=== PATIENT | female | born 1975 | race Caucasian/White ===

== ENCOUNTER 2017-03-12 13:09 | Day surgery (SDC) | payer BC ==
[2017-03-12 13:40] LABS: ABSOLUTE BASOPHILS # (AUTO) 0.1 10^3/uL (0.0-0.2); ABSOLUTE EOSINOPHILS # (AUTO) 0.1 10^3/uL (0.0-0.6); ABSOLUTE LYMPHOCYTES (AUTO) 2.4 10^3/uL (0.5-4.7); ABSOLUTE MONOCYTES (AUTO) 0.6 10^3/uL (0.1-1.4); ABSOLUTE NEUT (AUTO) 9.1 10^3/uL (1.7-8.2); BASOPHILS % (AUTO) 1.1 % (0-2); EOSINOPHILS % (AUTO) 0.8 % (0-6); HEMATOCRIT 39.4 % (36.0-47.0); HEMOGLOBIN 12.8 g/dL (12.0-15.5); LYMPHOCYTES % (AUTO) 19.2 % (13-45); MEAN CORPUSCULAR HEMOGLOBIN 24.8 pg (27.0-33.4); MEAN CORPUSCULAR HGB CONC 32.4 g/dL (32.0-36.0); MEAN CORPUSCULAR VOLUME 77 fl (80-97); RED BLOOD COUNT 5.14 10^6/uL (3.72-5.28); RED CELL DISTRIBUTION WIDTH 14.9 % (11.5-14.0); SEGMENTED NEUTROPHILS % (AUTO) 73.9 % (42-78); WHITE BLOOD COUNT 12.3 10^3/uL (4.0-10.5)
[2017-03-12 13:56] LABS: ANION GAP 16 (5-19); BLOOD UREA NITROGEN 14 mg/dL (7-20); CALCIUM 9.6 mg/dL (8.4-10.2); CARBON DIOXIDE 19 mmol/L (22-30); CHLORIDE 107 mmol/L (98-107); CREATININE RESULT 0.71 mg/dL (0.52-1.25); GLUCOSE 224 mg/dL (75-110); POTASSIUM 4.2 mmol/L (3.6-5.0); SODIUM 141.8 mmol/L (137-145)
--- NOTE | 2017-03-12 13:58 | RADIOLOGY REPORT (SQ) ---
EXAM DESCRIPTION: CHEST SINGLE VIEW COMPLETED DATE/TIME: 03/12/2017 1:35 pm REASON FOR STUDY: PREOP COMPARISON: None. EXAM PARAMETERS: NUMBER OF VIEWS: One view. TECHNIQUE: Single frontal radiographic view of the chest acquired. RADIATION DOSE: NA LIMITATIONS: None. FINDINGS: LUNGS AND PLEURA: No opacities, masses or pneumothorax. No pleural effusion. MEDIASTINUM AND HILAR STRUCTURES: Andreina mildly prominent with prominent central pulmonary artery, ques tion pulmonary hypertension. Fullness right paratracheal region likely tortuous brachiocephalic vess els. . HEART AND VASCULAR STRUCTURES: Heart normal in size. Prominent right atrium. Normal vasculature. BONES: No acute findings. HARDWARE: None in the chest. OTHER: No other significant finding. IMPRESSION: Findings worrisome for pulmonary hypertension TECHNICAL DOCUMENTATION: JOB ID: [id number]
[2017-03-12] MEDS ORDERED: RINGERS SOLUTION,LACTATED 1,000 ML IV PRN (14:01)
[2017-03-12] MEDS ORDERED: SUCCINYLCHOLINE CHLORIDE INJ 200 MG/10 ML VIAL ONE (14:17)
[2017-03-12] MEDS ORDERED: MORPHINE SULFATE 10 MG/ML INJ ONE ×2 (14:52→18:07)
[2017-03-12] MEDS ORDERED: CLINDAMYCIN 600 MG/D5W RTU 600 MG/50 ML RTUPB IV ONE (15:56)
[2017-03-12] MEDS ORDERED: MIDAZOLAM 2 MG/2 ML INJ ONE (16:03)
[2017-03-12] MEDS ORDERED: FENTANYL CITRATE INJ/PF 100 MCG/2 ML AMPUL ONE ×2 (16:03→17:38)
[2017-03-12] MEDS ORDERED: OXYTOCIN 10 UNIT/ML VIAL ONE (16:04)
[2017-03-12] MEDS ORDERED: PROPOFOL INJ 200 MG/20 ML VIAL IV ONE (16:04)
[2017-03-12] MEDS ORDERED: DEXAMETHASONE SOD PHOSPHATE INJ 4 MG/1 ML VIAL ONE (16:04)
[2017-03-12] MEDS ORDERED: ONDANSETRON HCL INJ/PF 4 MG/2 ML SDV ONE (16:04)
[2017-03-12] MEDS ORDERED: MORPHINE SULFATE 10 MG/ML INJ IV PRN (16:43)
[2017-03-12] MEDS ORDERED: MEPERIDINE HCL/PF INJ 25 MG/1 ML DISP.SYRIN IV PRN (16:43)
[2017-03-12] MEDS ORDERED: PROMETHAZINE HCL INJ 25 MG/1 ML VIAL IV PRN ×2 (16:43)
[2017-03-12] MEDS ORDERED: OXYCODONE-ACETAMINOPHEN 5-325 MG TABLET PO PRN ×4 (16:43→17:48)
[2017-03-12] MEDS ORDERED: FENTANYL CITRATE INJ/PF 100 MCG/2 ML AMPUL IV PRN ×3 (16:43)
[2017-03-12] MEDS ORDERED: DIPHENHYDRAMINE HCL 50 MG/ML VIAL IV PRN (16:43)
[2017-03-12] MEDS ORDERED: ACETAMINOPHEN 100 ML IV ONE (17:33)
[2017-03-12] MEDS ORDERED: KETOROLAC TROMETHAMINE INJ/PF 30 MG/1 ML SDV ONE (17:33)
[2017-03-12] MEDS ORDERED: MEPERIDINE HCL/PF INJ 25 MG/1 ML DISP.SYRIN ONE (17:38)
[2017-03-12] MEDS ORDERED: MORPHINE SULFATE 10 MG/ML INJ INJ PRN (17:50)
[2017-03-12] MEDS ORDERED: PROMETHAZINE HCL INJ 25 MG/1 ML VIAL IM PRN (17:51)
--- NOTE | 2017-03-12 19:47 | OPERATIVE REPORT E ---
Operative Report NAME: WILMAR WARREN : 1975 AGE: 41Y DATE OF SURGERY: 03/12/2017 ROOM: PREOPERATIVE DIAGNOSES: 1. Endometrial lesion. 2. Dysmenorrhea. 3. Menorrhagia. POSTOPERATIVE DIAGNOSES: 1. Endometrial lesion. 2. Dysmenorrhea. 3. Menorrhagia. 4. Submucous fibroid. OPERATION: Hysteroscopic myomectomy with MyoSure. SURGEON: LESLYE COELLO M.D. ESTIMATED BLOOD LOSS: 75 mL. COMPLICATIONS: None. ANESTHESIA: General endotracheal. TOTAL INTAKE: 5500 mL; 5300 was recovered in drapes, fluid and suction. INDICATION FOR PROCEDURE: The patient was initially seen first time in the office with *------* bleeding that had gone on for many weeks. She was seeing a physician who gave her Provera and no diagnostic considerations were done elsewhere. Vaginal ultrasound demonstrated the possibility of a 3 x 4 x 4 cm intramural lesion present. She was brought to the hospital for emergent hysteroscopy and tissue diagnosis and possible excision. The usual risks of bleeding, infection, anesthesia, damage to organs and tissue were discussed with patient who understood. DESCRIPTION OF PROCEDURE: The patient to the operating room and placed in modified lithotomy position. Adequate anesthesia was ascertained. The patient was prepped and draped in the usual for a hysteroscopy. Using a single-tooth tenaculum on the anterior lip of the cervix, the cervix readily admitted the operative hysteroscope where the above noted findings were appreciated. Photographs were taken. Attempts to grasp the lesion with Allis clamp and spring forceps were unsuccessful, and attention then turned to the MyoSure device which was used to excise the lesion essentially in toto. Small posterior amount of fibroid appeared to be present which was unable to be grasped with the Allis clamps or curette or MyoSure device. Bleeding was nil at the completion of the procedure. Instruments were removed. The patient was taken to the recovery room in a stable condition. Tissue sent to Pathology. DICTATING PHYSICIAN: LESLYE COELLO M.D. [id number] PHY#: [id number] ID: [id number] JOB#: [id number] ACCT: [id number] cc:LESLYE COELLO M.D. >
[2017-03-12 19:59] VITALS: BP 118/68
[2017-03-12] MEDS ORDERED: IBUPROFEN 800 MG TABLET PO SCH (22:00)
[2017-03-13] MEDS ORDERED: CLINDAMYCIN 600 MG/D5W RTU 600 MG/50 ML RTUPB IV PRN (05:00)
== END 2017-03-12 20:01 | disposition home or self-care (01) ==
LOC: OROUT 13:09
PROVIDERS: ATTEND Specialist
PROC: 0UB98ZZ Excision of Uterus, Via Natural or Artificial Opening Endoscopic (ICD-10-PCS; principal; 2017-03-12 17:00)
DX: C54.1 Malignant neoplasm of endometrium (principal); N92.0 Excessive and frequent menstruation with regular cycle; N94.6 Dysmenorrhea, unspecified; D25.0 Submucous leiomyoma of uterus; E28.2 Polycystic ovarian syndrome; J45.909 Unspecified asthma, uncomplicated; E11.9 Type 2 diabetes mellitus without complications; F17.210 Nicotine dependence, cigarettes, uncomplicated; G43.909 Migraine, unspecified, not intractable, without status migrainosus; E66.9 Obesity, unspecified; Z88.0 Allergy status to penicillin; Z79.84 Long term (current) use of oral hypoglycemic drugs; Z68.37 Body mass index [BMI] 37.0-37.9, adult
CPT/HCPCS: 86900; 86901; 36415; 86850; 85025; 80048; 88305 ×2; 71010; 58561; J2250; J1100; J3010; J1885; J2270; J2590; J0330; J2405; J2704; J0131; 840; J2175

== ENCOUNTER 2017-04-12 17:02 | Emergency (ER) | payer BC ==
--- NOTE | 2017-04-12 17:41 | ER Document Report ---
ED Medical Screen (RME) - General Chief Complaint: Post Surgical Pain Stated Complaint: WOUND CHECK Time Seen by Provider: 04/12/17 17:38 Notes: 42-year-old female patient had a laparoscopic hysterectomy 1 week ago. She reports some drainage from the umbilical port wound. And also something does not feel right in the vaginal area. She states it feels like something is torn or hanging out. I have greeted and performed a rapid initial assessment of this patient. A comprehensive ED assessment and evaluation of the patient, analysis of test results and completion of the medical decision making process will be conducted by additional ED providers. TRAVEL OUTSIDE OF THE [place] IN LAST 30 DAYS: No - Related Data Allergies/Adverse Reactions: Penicillins Allergy (Verified 04/12/17 17:10) Past Medical History - Past Medical History Cardiac Medical History: Denies: Hx Coronary Artery Disease, Hx Heart Attack, Hx Hypertension Pulmonary Medical History: Reports: Hx Asthma Denies: Hx Bronchitis, Hx COPD, Hx Pneumonia Neurological Medical History: Denies: Hx Cerebrovascular Accident, Hx Seizures Renal/ Medical History: Denies: Hx Peritoneal Dialysis Musculoskeltal Medical History: Denies Hx Arthritis - Immunizations Hx Diphtheria, Pertussis, Tetanus Vaccination: Yes History of Influenza Vaccine for 03/2017 - 07/2017 Season: No Physical Exam - Vital signs Vitals: Temp Pulse Resp BP Pulse Ox 98.6 F 73 18 133/83 H 97 04/12/17 17:10 04/12/17 17:10 04/12/17 17:10 04/12/17 17:10 04/12/17 17:10 Course - Vital Signs Vital signs: Temp Pulse Resp BP Pulse Ox 98.6 F 73 18 133/83 H 97 04/12/17 17:10 04/12/17 17:10 04/12/17 17:10 04/12/17 17:10 04/12/17 17:10
[2017-04-12 18:05] LABS: ABSOLUTE BASOPHILS # (AUTO) 0.1 10^3/uL (0.0-0.2); ABSOLUTE EOSINOPHILS # (AUTO) 0.3 10^3/uL (0.0-0.6); ABSOLUTE LYMPHOCYTES (AUTO) 2.1 10^3/uL (0.5-4.7); ABSOLUTE MONOCYTES (AUTO) 0.6 10^3/uL (0.1-1.4); ABSOLUTE NEUT (AUTO) 4.7 10^3/uL (1.7-8.2); BASOPHILS % (AUTO) 1.4 % (0-2); EOSINOPHILS % (AUTO) 3.6 % (0-6); HEMATOCRIT 34.4 % (36.0-47.0); HEMOGLOBIN 11.1 g/dL (12.0-15.5); HGB HCT DIFFERENCE -1.1; LYMPHOCYTES % (AUTO) 26.7 % (13-45); MEAN CORPUSCULAR HEMOGLOBIN 24.1 pg (27.0-33.4); MEAN CORPUSCULAR HGB CONC 32.3 g/dL (32.0-36.0); MEAN CORPUSCULAR VOLUME 74 fl (80-97); MONOCYTES % (AUTO) 7.5 % (3-13); RED BLOOD COUNT 4.62 10^6/uL (3.72-5.28); RED CELL DISTRIBUTION WIDTH 15.8 % (11.5-14.0); SEGMENTED NEUTROPHILS % (AUTO) 60.8 % (42-78); WHITE BLOOD COUNT 7.7 10^3/uL (4.0-10.5)
[2017-04-12 18:29] LABS: ALANINE AMINOTRANSFERASE 23 U/L (9-52); ALBUMIN 3.5 g/dL (3.5-5.0); ALKALINE PHOSPHATASE 49 U/L (38-126); ANION GAP 12 (5-19); ASPARTATE AMINO TRANSFERASE 13 U/L (14-36); BILIRUBIN,DIRECT 0.2 mg/dL (0.0-0.4); BILIRUBIN,TOTAL 0.2 mg/dL (0.2-1.3); BLOOD UREA NITROGEN 13 mg/dL (7-20); CALCIUM 9.3 mg/dL (8.4-10.2); CARBON DIOXIDE 25 mmol/L (22-30); CHLORIDE 106 mmol/L (98-107); CREATININE RESULT 0.73 mg/dL (0.52-1.25); GLUCOSE 133 mg/dL (75-110); POTASSIUM 4.6 mmol/L (3.6-5.0); SODIUM 142.5 mmol/L (137-145); TOTAL PROTEIN 6.2 g/dL (6.3-8.2)
[2017-04-12 18:39] LABS: APPEARANCE,URINE SLIGHTLY-CLOUDY; BILIRUBIN,URINE NEGATIVE (NEGATIVE); CALCIUM OXALATE CRYSTALS,URINE MODERATE /HPF; GLUCOSE, URINE NEGATIVE (NEGATIVE); KETONES,URINE NEGATIVE (NEGATIVE); LEUKOCYTE ESTERASE,URINE NEGATIVE (NEGATIVE); NITRITE,URINE NEGATIVE (NEGATIVE); PROTEIN,URINE NEGATIVE (NEGATIVE); URINE SPECIFIC GRAVITY 1.029; UROBILINOGEN,URINE NEGATIVE mg/dL (<2.0)
[2017-04-12] MEDS ORDERED: OXYCODONE-ACETAMINOPHEN 5-325 MG TABLET PO ONE (19:31)
--- NOTE | 2017-04-12 19:33 | ER Document Report ---
ED General - General Chief Complaint: Post Surgical Pain Stated Complaint: WOUND CHECK Time Seen by Provider: 04/12/17 17:38 Mode of Arrival: Ambulatory Information source: Patient Notes: Patient states she had a laparoscopic hysterectomy 6 days ago at [facility]. Patient states that she is starting to get cold symptoms yesterday. Patient states that she coughed yesterday and felt a pulling in her abdomen. Patient states then she noticed that her wound had opened up. Patient states that she has had drainage from the wound today. Patient reports going to the bathroom and bending over and noticing a large amount of fluid drained from her wound that saturated the lower part of pressure. Patient denies any fever, nausea or vomiting. Patient does report some mild diarrhea. Patient states that she is almost out of pain medication and has been trying to stretch her pain medication. She has not had any pain medication today. Patient does report some abdominal tenderness around her incision site. TRAVEL OUTSIDE OF THE [place] IN LAST 30 DAYS: No - HPI Onset/Duration: Persistent Quality of pain: Sharp Pain Level: 4 Associated symptoms: Nonproductive cough, Diarrhea. denies: Chest pain, Chills , Fever, Headache, Nausea, Vomiting Exacerbated by: Movement Relieved by: Denies Similar symptoms previously: No Recently seen / treated by doctor: Yes - Related Data Allergies/Adverse Reactions: Penicillins Allergy (Verified 04/12/17 17:10) Past Medical History - General Information source: Patient Last Menstrual Period: hyst - Social History Smoking Status: Former Smoker Frequency of alcohol use: None Drug Abuse: None Occupation: none Lives with: Family Family History: Reviewed & Not Pertinent Patient has suicidal ideation: No Patient has homicidal ideation: No - Past Medical History Cardiac Medical History: Reports: Other - anemia Denies: Hx Coronary Artery Disease, Hx Heart Attack, Hx Hypertension Pulmonary Medical History: Reports: Hx Asthma Denies: Hx Bronchitis, Hx COPD, Hx Pneumonia Neurological Medical History: Denies: Hx Cerebrovascular Accident, Hx Seizures Endocrine Medical History: Reports: Hx Diabetes Mellitus Type 2, Hx Hypothyroidism Renal/ Medical History: Denies: Hx Peritoneal Dialysis Musculoskeltal Medical History: Denies Hx Arthritis Past Surgical History: Reports: Hx Gynecologic Surgery, Hx Hysterectomy - Immunizations Hx Diphtheria, Pertussis, Tetanus Vaccination: Yes Review of Systems - Review of Systems Constitutional: No symptoms reported. denies: Fever, Recent illness EENT: No symptoms reported Cardiovascular: No symptoms reported. denies: Chest pain Respiratory: Cough. denies: Short of breath Gastrointestinal: Abdominal pain, Diarrhea. denies: Nausea, Vomiting, Poor appetite Genitourinary: No symptoms reported. denies: Dysuria, Flank pain Female Genitourinary: No symptoms reported Musculoskeletal: No symptoms reported. denies: Back pain Skin: Other - Surgical wound dehiscence Hematologic/Lymphatic: No symptoms reported Neurological/Psychological: No symptoms reported Physical Exam - Vital signs Vitals: Temp Pulse Resp BP Pulse Ox 98.6 F 73 18 133/83 H 97 04/12/17 17:10 04/12/17 17:10 04/12/17 17:10 04/12/17 17:10 04/12/17 17:10 - General General appearance: Appears well, Alert In distress: None - HEENT Head: Normocephalic, Atraumatic Eyes: Normal Conjunctiva: Normal Nasal: Clear rhinorrhea Mouth/Lips: Normal Mucous membranes: Normal Pharynx: Normal Neck: Normal, Supple. No: Lymphadenopathy - Respiratory Respiratory status: No respiratory distress Chest status: Nontender Breath sounds: Normal. No: Rales, Rhonchi, Stridor, Wheezing Chest palpation: Normal - Cardiovascular Rhythm: Regular Heart sounds: S1 appreciated, S2 appreciated Murmur: No - Abdominal Inspection: Morbidly Obese Distension: No distension Bowel sounds: Normal Tenderness: Tender - periumbilical incision dehiscence, no drainage able to be expressed from wound. Patient with serous drainage noted to gauze pad Organomegaly: No organomegaly - Back Back: Normal, Nontender. No: CVA tenderness - Extremities General upper extremity: Normal inspection, Normal ROM General lower extremity: Normal inspection, Normal ROM - Neurological Neuro grossly intact: Yes Cognition: Normal [place] Coma Scale Eye Opening: Spontaneous Alysa Coma Scale Verbal: Oriented Alysa Coma Scale Motor: Obeys Commands [place] Coma Scale Total: 15 - Psychological Associated symptoms: Normal affect, Normal mood - Skin Skin Temperature: Warm Skin Moisture: Dry Skin Color: Normal Course - Re-evaluation Re-evalutation: 04/12/17 19:[address] Patel who recommends ultrasound imaging of the abdomen to evaluate for any possible fluid collection. 04/12/17 21:32 call placed to [facility] for consultation 04/12/17 21:[address] Elkins who is on-call at [facility]. Recommends having patient follow up in the office Thursday for recheck. Does not recommend any additional testing at this time. - Vital Signs Vital signs: Temp Pulse Resp BP Pulse Ox 98.6 F 72 18 127/68 H 99 04/12/17 21:51 04/12/17 21:51 04/12/17 21:51 04/12/17 21:51 04/12/17 21:51 - Laboratory Result Diagrams: 04/12/17 17:51 04/12/17 17:51 Laboratory results interpreted by me: 04/12/17 04/12/17 17:51 17:51 Hgb 11.1 L Hct 34.4 L MCV 74 L MCH 24.1 L RDW 15.8 H Glucose 133 H AST 13 L Total Protein 6.2 L 04/12/17 21:57 Labs- Entire Visit 04/12/17 04/12/17 04/12/17 17:51 17:51 18:05 WBC 7.7 RBC 4.62 Hgb 11.1 L Hct 34.4 L MCV 74 L MCH 24.1 L MCHC 32.3 RDW 15.8 H Plt Count 342 Seg Neutrophils % 60.8 Lymphocytes % 26.7 Monocytes % 7.5 Eosinophils % 3.6 Basophils % 1.4 Absolute Neutrophils 4.7 Absolute Lymphocytes 2.1 Absolute Monocytes 0.6 Absolute Eosinophils 0.3 Absolute Basophils 0.1 Sodium 142.5 Potassium 4.6 Chloride 106 Carbon Dioxide 25 Anion Gap 12 BUN 13 Creatinine 0.73 Est GFR ( Amer) > 60 Est GFR (Non-Af Amer) > 60 Glucose 133 H Calcium 9.3 Total Bilirubin 0.2 Direct Bilirubin 0.2 Indirect Bilirubin Not Reportable Neonat Total Bilirubin Not Reportable AST 13 L ALT 23 Alkaline Phosphatase 49 Total Protein 6.2 L Albumin 3.5 Urine Color YELLOW Urine Appearance SLIGHTLY-CLOUDY Urine pH 5.0 Ur Specific [place] 1.029 Urine Protein NEGATIVE Urine Glucose (UA) NEGATIVE Urine Ketones NEGATIVE Urine Blood NEGATIVE Urine Nitrite NEGATIVE Urine Bilirubin NEGATIVE Urine Urobilinogen NEGATIVE Ur Leukocyte Esterase NEGATIVE Urine WBC (Auto) 2 Urine RBC (Auto) 1 Squamous Epi Cells Auto 1 Calcium Oxalate Cr Auto MODERATE Urine Mucus (Auto) RARE Urine Ascorbic Acid NEGATIVE - Diagnostic Test Radiology reviewed: Reports reviewed Discharge - Discharge Clinical Impression: Abdominal pain Qualifiers: Abdominal location: unspecified location Qualified Code(s): R10.9 - Unspecified abdominal pain Postoperative wound dehiscence Qualifiers: Encounter type: initial encounter Qualified Code(s): T81.31XA - Disruption of external operation (surgical) wound, not elsewhere classified, initial encounter Condition: Stable Disposition: HOME, SELF-CARE Instructions: Abdominal Pain ([facility]), Oral Narcotic Medication ([facility]) Additional Instructions: Return immediately for any new or worsening symptoms Followup with your primary care provider, call tomorrow to make a followup appointment Follow-up with your surgeon on Thursday for recheck. Call their office tomorrow to make an appointment time. Prescriptions: Oxycodone HCl/Acetaminophen [Percocet 5-325 mg Tablet] 1 tab PO ASDIR PRN #15 tablet PRN Reason: Referrals: KAVEH ARORA MD [NO LOCAL MD] - 04/14/17
--- NOTE | 2017-04-12 21:09 | RADIOLOGY REPORT (SQ) ---
EXAM DESCRIPTION: U/S ABDOMEN LIMITED W/O DOP COMPLETED DATE/TIME: 04/12/2017 8:56 pm REASON FOR STUDY: abd pain s/p hyst, wound dehiscence with drainage COMPARISON: None. TECHNIQUE: Dynamic and static grayscale images acquired of the localized site of clinical concern an d recorded on PACS. Additional selected color Doppler and spectral images recorded. SITE OF CONCERN: Periumbilical ventral abdominal wall LIMITATIONS: None. FINDINGS: SKIN AND SUBCUTANEOUS TISSUES: In the superficial subcutaneous tissues deep to the region of interest, there is a complicated appearing 2.2 cm collection. This does not appear to extend into the deeper tissues. DEEP SOFT TISSUES/MUSCLES: Normal. VASCULAR: No increased or decreased vascularity. No occlusions. OTHER: No other significant finding. IMPRESSION: 1. Roughly 2 cm ventral abdominal subcutaneous hematoma or complicated fluid collection . TECHNICAL DOCUMENTATION: JOB ID: [id number] [employer]- All Rights Reserved
[2017-04-12 21:52] VITALS: BP 127/68
== END 2017-04-12 22:08 | disposition home or self-care (01) ==
LOC: ER 17:02
DX: T81.31XA Disruption of external operation (surgical) wound, not elsewhere classified, initial encounter (principal); Y83.6 Removal of other organ (partial) (total) as the cause of abnormal reaction of the patient, or of later complication, without mention of misadventure at the time of the procedure; Z90.710 Acquired absence of both cervix and uterus; R19.7 Diarrhea, unspecified; R05 Cough; J34.89 Other specified disorders of nose and nasal sinuses; E11.9 Type 2 diabetes mellitus without complications; J45.909 Unspecified asthma, uncomplicated; Z88.0 Allergy status to penicillin; Z87.891 Personal history of nicotine dependence
CPT/HCPCS: 36415; 76705; 80053; 81001; 85025; 99284

== ENCOUNTER → 2017-07-10 | Outpatient (CLI) | payer BC ==
[2017-07-10 11:09] LABS: ABSOLUTE EOSINOPHILS # (AUTO) 0.1 10^3/uL (0.0-0.6); ABSOLUTE LYMPHOCYTES (AUTO) 1.5 10^3/uL (0.5-4.7); ABSOLUTE MONOCYTES (AUTO) 0.4 10^3/uL (0.1-1.4); ABSOLUTE NEUT (AUTO) 3.3 10^3/uL (1.7-8.2); BASOPHILS % (AUTO) 0.8 % (0-2); EOSINOPHILS % (AUTO) 2.4 % (0-6); HEMATOCRIT 39.8 % (36.0-47.0); HEMOGLOBIN 13.5 g/dL (12.0-15.5); LYMPHOCYTES % (AUTO) 28.1 % (13-45); MEAN CORPUSCULAR HEMOGLOBIN 26.1 pg (27.0-33.4); MEAN CORPUSCULAR HGB CONC 33.9 g/dL (32.0-36.0); MEAN CORPUSCULAR VOLUME 77 fl (80-97); MONOCYTES % (AUTO) 7.5 % (3-13); PLATELET COUNT 210 10^3/uL (150-450); RED BLOOD COUNT 5.16 10^6/uL (3.72-5.28); RED CELL DISTRIBUTION WIDTH 25.5 % (11.5-14.0); SEGMENTED NEUTROPHILS % (AUTO) 61.2 % (42-78); TOTAL CELLS COUNTED % (AUTO) 100 %; WHITE BLOOD COUNT 5.4 10^3/uL (4.0-10.5)
[2017-07-10 11:29] LABS: ANION GAP 11 (5-19); BLOOD UREA NITROGEN 15 mg/dL (7-20); CALCIUM 9.8 mg/dL (8.4-10.2); CARBON DIOXIDE 24 mmol/L (22-30); CHLORIDE 102 mmol/L (98-107); GLUCOSE 237 mg/dL (75-110); POTASSIUM 4.7 mmol/L (3.6-5.0); SODIUM 137.2 mmol/L (137-145)
[2017-07-10 11:46] LABS: ANISOCYTOSIS 3+; OVALOCYTES SLIGHT; PLATELET COMMENT ADEQUATE; POIKILOCYTOSIS SLIGHT; TEAR DROP CELLS SLIGHT
== END ==
LOC: OD 10:10
PROVIDERS: ATTEND Radiology Radiation Oncology
DX: C54.2 Malignant neoplasm of myometrium (principal); C77.2 Secondary and unspecified malignant neoplasm of intra-abdominal lymph nodes
CPT/HCPCS: 36415; 80048; 85025

== ENCOUNTER 2017-10-16 00:17 | Emergency (ER) | payer BC ==
[2017-10-16] MEDS ORDERED: ONDANSETRON HCL INJ/PF 4 MG/2 ML SDV IV ONE (02:07)
[2017-10-16] MEDS ORDERED: NORMAL SALINE 1000 ML 1,000 ML IV ONE ×2 (02:07→03:21)
[2017-10-16] MEDS ORDERED: HYDROMORPHONE HCL INJ/PF 2 MG/ML AMPULE IV ONE (02:14)
--- NOTE | 2017-10-16 02:19 | ER Document Report ---
ED General - General Chief Complaint: Diarrhea Stated Complaint: DIZZY,HEADACHE,DIARRHEA,NAUSEA Time Seen by Provider: 10/16/17 02:06 Mode of Arrival: Ambulatory Information source: Patient TRAVEL OUTSIDE OF THE [place] IN LAST 30 DAYS: No - HPI Patient complains to provider of: dizzy, diarrhea Onset: Yesterday Onset/Duration: Gradual Quality of pain: Other - neuropathy pain b/l feet Exacerbated by: Movement Relieved by: Denies Similar symptoms previously: Yes Recently seen / treated by doctor: Yes Notes: Is endometrial cancer and has finished her round of radiation and was supposed to get chemotherapy yesterday but it was on hold secondary to diagnosis of C. difficile. Patient states today she feels drained with nausea dizziness lots of diarrhea and a headache. - Related Data Allergies/Adverse Reactions: Penicillins Allergy (Verified 04/12/17 17:10) Past Medical History - General Information source: Patient - Social History Smoking Status: Former Smoker Frequency of alcohol use: None Lives with: Family Family History: Reviewed & Not Pertinent - Past Medical History Cardiac Medical History: Reports: None Denies: Hx Coronary Artery Disease, Hx Heart Attack, Hx Hypertension Pulmonary Medical History: Reports: Hx Asthma Denies: Hx Bronchitis, Hx COPD, Hx Pneumonia EENT Medical History: Reports: None Neurological Medical History: Reports: None. Denies: Hx Cerebrovascular Accident, Hx Seizures Endocrine Medical History: Reports: Hx Diabetes Mellitus Type 2, Hx Hypothyroidism Renal/ Medical History: Reports: None. Denies: Hx Peritoneal Dialysis Malignancy Medical History: Reports: Other - endometrial GI Medical History: Reports: None Musculoskeltal Medical History: Reports None, Denies Hx Arthritis Traumatic Medical History: Reports: None Infectious Medical History: Reports: Hx C-Diff - currently Past Surgical History: Reports: Hx Gynecologic Surgery, Hx Hysterectomy - Immunizations Hx Diphtheria, Pertussis, Tetanus Vaccination: Yes Review of Systems - Review of Systems Constitutional: Chills EENT: No symptoms reported Cardiovascular: No symptoms reported Respiratory: No symptoms reported Gastrointestinal: Diarrhea Genitourinary: No symptoms reported Female Genitourinary: No symptoms reported Musculoskeletal: No symptoms reported Skin: No symptoms reported Hematologic/Lymphatic: No symptoms reported Neurological/Psychological: See HPI Physical Exam - Vital signs Vitals: Temp Pulse Resp BP Pulse Ox 98.6 F 101 H 16 132/83 H 97 10/16/17 00:34 10/16/17 00:34 10/16/17 00:34 10/16/17 00:34 10/16/17 00:34 - Notes Notes: PHYSICAL EXAMINATION: GENERAL: Pale, chronically ill-appearing well-nourished and in no acute distress. HEAD: Atraumatic, normocephalic. EYES: Pupils equal round and reactive to light, extraocular movements intact, conjunctiva are normal. No nystagmus. ENT: Nares patent, oropharynx clear without exudates. Dry mucous membranes. Enlarged right lobe thyroid. NECK: Normal range of motion, supple without lymphadenopathy LUNGS: Breath sounds clear to auscultation bilaterally and equal. No wheezes rales or rhonchi. HEART: Regular rate and rhythm without murmurs ABDOMEN: Soft, nontender, nondistended abdomen. No guarding, no rebound. No masses appreciated. Female : deferred Musculoskeletal: Normal range of motion, no pitting or edema. No cyanosis. NEUROLOGICAL: Cranial nerves grossly intact. Normal speech. Normal sensory, motor exams PSYCH: Normal mood, normal affect. SKIN: Warm, Dry, normal turgor, no rashes or lesions noted. Course - Re-evaluation Re-evalutation: 10/16/17 03:39 I did going to talk to the patient and her again. She states she is feeling a little better. I did tell her that her magnesium was low normal in light of the fact that she is having diarrhea and has a headache I will give her magnesium infusion. I did go over the patient's medication with her. She is taking vancomycin for her C. difficile diarrhea. Patient did tell me the story that she was having vaginal bleeding and she had seen a [employer] doctor who prescribed her some medications which she was taking to see if she could stop bleeding. She states she then saw another PSYCHIATRIC CLINICIAN who did an ultrasound and sent her directly to the hospital for emergent surgery. She had a hysterectomy and she did have one lymph node in her perineal area positive. She was given a regimen of chemotherapy and then 28 radiation treatments. She is now on her second regimen of chemotherapy however it has been stalled secondary to her C. difficile. - Vital Signs Vital signs: Temp Pulse Resp BP Pulse Ox 98.6 F 101 H 16 132/83 H 97 10/16/17 00:34 10/16/17 00:34 10/16/17 00:34 10/16/17 00:34 10/16/17 00:34 - Laboratory Result Diagrams: 10/16/17 02:56 10/16/17 02:56 Laboratory results interpreted by me: 10/16/17 10/16/17 02:56 02:56 RDW 14.8 H Seg Neutrophils % 79.5 H Lymphocytes % 10.4 L Glucose 152 H Discharge - Discharge Clinical Impression: C. difficile diarrhea Condition: Stable Disposition: HOME, SELF-CARE Instructions: C. (Clostridium) Difficile Infection ([facility]) Additional Instructions: Take your vancomycin antibiotic as previously prescribed. Return to the ED if worsening of symptoms or any other concerns.Follow up with your doctors as scheduled.
[2017-10-16 03:07] LABS: ABSOLUTE EOSINOPHILS # (AUTO) 0.1 10^3/uL (0.0-0.6); ABSOLUTE LYMPHOCYTES (AUTO) 0.6 10^3/uL (0.5-4.7); ABSOLUTE MONOCYTES (AUTO) 0.4 10^3/uL (0.1-1.4); ABSOLUTE NEUT (AUTO) 4.3 10^3/uL (1.7-8.2); BASOPHILS % (AUTO) 0.5 % (0-2); EOSINOPHILS % (AUTO) 1.5 % (0-6); HEMATOCRIT 37.9 % (36.0-47.0); HEMOGLOBIN 12.8 g/dL (12.0-15.5); LYMPHOCYTES % (AUTO) 10.4 % (13-45); MEAN CORPUSCULAR HEMOGLOBIN 30.3 pg (27.0-33.4); MEAN CORPUSCULAR HGB CONC 33.8 g/dL (32.0-36.0); MEAN CORPUSCULAR VOLUME 90 fl (80-97); MONOCYTES % (AUTO) 8.1 % (3-13); PLATELET COUNT 161 10^3/uL (150-450); RED BLOOD COUNT 4.23 10^6/uL (3.72-5.28); RED CELL DISTRIBUTION WIDTH 14.8 % (11.5-14.0); SEGMENTED NEUTROPHILS % (AUTO) 79.5 % (42-78); TOTAL CELLS COUNTED % (AUTO) 100 %; WHITE BLOOD COUNT 5.4 10^3/uL (4.0-10.5)
[2017-10-16 03:20] LABS: ALANINE AMINOTRANSFERASE 47 U/L (9-52); ALBUMIN 3.9 g/dL (3.5-5.0); ALKALINE PHOSPHATASE 49 U/L (38-126); ANION GAP 14 (5-19); ASPARTATE AMINO TRANSFERASE 26 U/L (14-36); BILIRUBIN,DIRECT 0.3 mg/dL (0.0-0.4); BILIRUBIN,TOTAL 0.3 mg/dL (0.2-1.3); BLOOD UREA NITROGEN 14 mg/dL (7-20); CALCIUM 9.8 mg/dL (8.4-10.2); CARBON DIOXIDE 25 mmol/L (22-30); CHLORIDE 105 mmol/L (98-107); GLUCOSE 152 mg/dL (75-110); POTASSIUM 4.3 mmol/L (3.6-5.0); SODIUM 144.1 mmol/L (137-145); TOTAL PROTEIN 6.5 g/dL (6.3-8.2)
[2017-10-16] MEDS ORDERED: MAGNESIUM SULFATE/D5W 1 GM/100 ML RTUPB IV ONE (03:21)
[2017-10-16 04:45] VITALS: BP 102/55
== END 2017-10-16 04:47 | disposition home or self-care (01) ==
LOC: ER 00:17
DX: A04.72 Enterocolitis due to Clostridium difficile, not specified as recurrent (principal); R42 Dizziness and giddiness; R51 Headache; C54.1 Malignant neoplasm of endometrium
CPT/HCPCS: 99284; 96361; 96375; 96365; 36415; 83735; 85025; 80053; J1170; J3475; J2405; J7030

== ENCOUNTER 2018-01-04 17:49 | Emergency (ER) | payer BC ==
[2018-01-04 19:06] LABS: ABSOLUTE BASOPHILS # (AUTO) 0.1 10^3/uL (0.0-0.2); ABSOLUTE EOSINOPHILS # (AUTO) 0.1 10^3/uL (0.0-0.6); ABSOLUTE LYMPHOCYTES (AUTO) 0.5 10^3/uL (0.5-4.7); ABSOLUTE MONOCYTES (AUTO) 0.4 10^3/uL (0.1-1.4); ABSOLUTE NEUT (AUTO) 5.5 10^3/uL (1.7-8.2); BASOPHILS % (AUTO) 1.2 % (0-2); EOSINOPHILS % (AUTO) 0.9 % (0-6); HEMOGLOBIN 11.8 g/dL (12.0-15.5); LYMPHOCYTES % (AUTO) 7.9 % (13-45); MEAN CORPUSCULAR HEMOGLOBIN 30.5 pg (27.0-33.4); MEAN CORPUSCULAR HGB CONC 33.7 g/dL (32.0-36.0); MEAN CORPUSCULAR VOLUME 91 fl (80-97); MONOCYTES % (AUTO) 6.6 % (3-13); PLATELET COUNT 165 10^3/uL (150-450); RED BLOOD COUNT 3.87 10^6/uL (3.72-5.28); RED CELL DISTRIBUTION WIDTH 19.3 % (11.5-14.0); SEGMENTED NEUTROPHILS % (AUTO) 83.4 % (42-78); TOTAL CELLS COUNTED % (AUTO) 100 %; WHITE BLOOD COUNT 6.6 10^3/uL (4.0-10.5)
[2018-01-04 19:26] LABS: ALANINE AMINOTRANSFERASE 30 U/L (9-52); ALBUMIN 3.9 g/dL (3.5-5.0); ALKALINE PHOSPHATASE 51 U/L (38-126); ANION GAP 14 (5-19); ASPARTATE AMINO TRANSFERASE 30 U/L (14-36); BILIRUBIN,DIRECT 0.2 mg/dL (0.0-0.4); BILIRUBIN,TOTAL 0.2 mg/dL (0.2-1.3); BLOOD UREA NITROGEN 11 mg/dL (7-20); CALCIUM 9.4 mg/dL (8.4-10.2); CARBON DIOXIDE 23 mmol/L (22-30); CHLORIDE 103 mmol/L (98-107); GLUCOSE 176 mg/dL (75-110); POTASSIUM 4.1 mmol/L (3.6-5.0); SODIUM 139.8 mmol/L (137-145); TOTAL PROTEIN 6.5 g/dL (6.3-8.2)
--- NOTE | 2018-01-04 22:43 | ER Document Report ---
ED Extremity Problem, Upper - General Chief Complaint: Arm Problem Stated Complaint: ARM VEIN SWOLLEN Time Seen by Provider: 01/04/18 18:22 TRAVEL OUTSIDE OF THE [place] IN LAST 30 DAYS: No - HPI Patient complains to provider of: Right, Arm, Other - 42-year-old female with a history of cancer who presents for evaluation of superficial swelling in the right forearm. She notes that it felt like there was a vein which may have had a knot underneath it and she has been massaging it since then not has shrunken in size she was concerned so presented for further evaluation. She denies any fevers chills rashes shortness of breath chest pain abdominal pain diarrhea constipation dysuria or other symptoms, she has never had anything like this happen in the past, rubbing it seemed to make it any better, nothing seemed to make it any worse. She has not tried to take anything for it. She has no history of clots in the past. She denies any other symptoms at this time. - Related Data Allergies/Adverse Reactions: Penicillins Allergy (Verified 01/04/18 18:15) Past Medical History - Social History Smoking Status: Current Every Day Smoker Frequency of alcohol use: None Drug Abuse: None Family History: Reviewed & Not Pertinent Patient has suicidal ideation: No Patient has homicidal ideation: No - Past Medical History Cardiac Medical History: Denies: Hx Coronary Artery Disease, Hx Heart Attack, Hx Hypertension Pulmonary Medical History: Reports: Hx Asthma Denies: Hx Bronchitis, Hx COPD, Hx Pneumonia Neurological Medical History: Denies: Hx Cerebrovascular Accident, Hx Seizures Endocrine Medical History: Reports: Hx Diabetes Mellitus Type 2, Hx Hypothyroidism Renal/ Medical History: Denies: Hx Peritoneal Dialysis Musculoskeletal Medical History: Denies Hx Arthritis Infectious Medical History: Reports: Hx C-Diff - currently Past Surgical History: Reports: Hx Section, Hx Cholecystectomy, Hx Gynecologic Surgery, Hx Hysterectomy, Hx Tonsillectomy - Immunizations Hx Diphtheria, Pertussis, Tetanus Vaccination: Yes Review of Systems - Review of Systems -: Yes All other systems reviewed and negative Physical Exam - Vital signs Vitals: Temp Pulse Resp BP Pulse Ox 98.1 F 84 16 115/73 96 01/04/18 18:15 01/04/18 18:15 01/04/18 18:15 01/04/18 18:15 01/04/18 18:15 - General General appearance: Other - Chronically ill-appearing 42-year-old female without hair - HEENT Head: Normocephalic, Other - Bald Eyes: Other - Small superficial skin accumulation on the right inferior eyelid without any erythema or drainage Cornea: Normal Extraocular movements intact: Yes Pupils: PERRL Corrective lenses worn: No - Respiratory Respiratory status: No respiratory distress Chest status: Nontender Breath sounds: Normal Chest palpation: Normal - Cardiovascular Rhythm: Regular Heart sounds: Normal auscultation Murmur: No - Abdominal Inspection: Normal Distension: No distension Bowel sounds: Normal - Back Back: Normal - Extremities General upper extremity: Other - The right upper extremity demonstrates a small area of tenderness just distal to the elbow on the volar aspect of the arm with a vein overlying. There is no erythema no appreciable swelling elsewhere there is a strong radial pulse normal sensation in the ulnar median and radial distribution of the hand and brisk capillary refill in all fingers. General lower extremity: Normal inspection - Neurological Neuro grossly intact: Yes Cognition: Normal Orientation: AAOx4 - Skin Skin Temperature: Warm Course - Re-evaluation Re-evalutation: 42-year-old female with a history of cancer currently receiving treatment who presents for evaluation of swelling and what she thought was a vein bulging on the right forearm 1 day. It did improve with some gentle rubbing. Through triage this patient received labs as well as an order for an ultrasound of the right upper extremity. On examination this patient's upper extremity does not demonstrate any stigmata of a DVT, it is possible that the pain and swelling as a result of a fluid collection, possible thromboembolus, possible muscle spasm. It is unlikely this represents a DVT however given the location of the quality of pain. Ultrasound is evaluated the patient's arm, does not demonstrate any obvious thromboembolus in the deep veins in the arm. There may be a superficial venous clot which does not require anticoagulation at this time. Per recommendations generally this patient should place warmth over the swollen portion. We will plan for this patient to follow-up with her oncologist. Gave her strict return precautions related any shortness of breath or other symptoms. Her chemistry and CBC were nondiagnostic and relations her electrolytes are unlikely to be underlying cause of her cramping or pain in the arm. - Vital Signs Vital signs: Temp Pulse Resp BP Pulse Ox 98.1 F 84 20 105/71 98 08/06/18 18:15 01/04/18 18:15 01/04/18 22:43 01/04/18 22:43 01/04/18 22:43 - Laboratory Result Diagrams: 01/04/18 18:53 01/04/18 18:53 Laboratory results interpreted by me: 01/04/18 01/04/18 18:53 18:53 Hgb 11.8 L Hct 35.0 L RDW 19.3 H Seg Neutrophils % 83.4 H Lymphocytes % 7.9 L Glucose 176 H Discharge - Discharge Clinical Impression: Arm pain, Subconjunctival bleed Condition: Good Disposition: HOME, SELF-CARE Instructions: Subconjunctival Hemorrhage ([facility]) Additional Instructions: Please use warm compresses on your arms at least twice a day over the next week , you may use warm compresses as well on your right and left eye. Return for worsening swelling shortness of breath chest pain or other symptoms. Continue to monitor yourself for symptoms, in case of any worsening call your physician or return. You may have had a superficial clot and a small vein which is now resolved though we did not see this. Call your primary physician tomorrow to update them about your care.
[2018-01-04 22:45] VITALS: BP 105/71
--- NOTE | 2018-01-05 16:01 | XCELERA REPORT ---
[address] [address] Upper Extremity Venous Evaluation Name: WILMAR WARREN Age: 42 yrs Gender: Female : 1975 Patient Status: Emergency Patient Location: ER Study Date: 01/04/2018 10:09 PM Procedure: Unilateral duplex scan of the right upper extremity veins was performed, including responses to compression and other maneuvers. Reason For Study: concern for DVT in the RUE Ordering Physician: ROSA JEWELL Performed By: Esme Pack Right Side Venous Evaluation Limited area of echogenic filling in Cephalic vein. Otherwise normal vessel filling wall to wall, compression and augmentation as well as Colour flow down to the infrageniculate veins. Interpretation Summary No duplex evidence of DVT or obstruction in the right upper extremity. Superficial phlebitis, as noted, acute. : ROSA JEWELL > Mo Schuler
== END 2018-01-04 22:48 | disposition home or self-care (01) ==
LOC: ER 17:49
DX: H11.31 Conjunctival hemorrhage, right eye (principal); M79.89 Other specified soft tissue disorders; M79.602 Pain in left arm; M79.601 Pain in right arm; F17.200 Nicotine dependence, unspecified, uncomplicated; E11.9 Type 2 diabetes mellitus without complications; E03.9 Hypothyroidism, unspecified; Z90.49 Acquired absence of other specified parts of digestive tract; Z90.710 Acquired absence of both cervix and uterus; Z85.9 Personal history of malignant neoplasm, unspecified
CPT/HCPCS: 36415; 80053; 85025; 93971; 99283

== ENCOUNTER 2018-02-22 17:06 | Emergency (ER) | payer BC ==
--- NOTE | 2018-02-22 18:04 | ER Document Report ---
ED Medical Screen (RME) - General Chief Complaint: Leg Swelling Stated Complaint: LEG SWELLING Time Seen by Provider: 02/22/18 18:03 TRAVEL OUTSIDE OF THE U.S[place] IN LAST 30 DAYS: No - HPI Notes: 02/22/18 18:03 Bilateral leg swelling and pain history of endometrial cancer currently undergoing radiation chemotherapy - Related Data Allergies/Adverse Reactions: Penicillins Allergy (Verified 01/04/18 18:15) Past Medical History - Social History Frequency of alcohol use: None Drug Abuse: None - Past Medical History Cardiac Medical History: Denies: Hx Coronary Artery Disease, Hx Heart Attack, Hx Hypertension Pulmonary Medical History: Reports: Hx Asthma Denies: Hx Bronchitis, Hx COPD, Hx Pneumonia Neurological Medical History: Denies: Hx Cerebrovascular Accident, Hx Seizures Endocrine Medical History: Reports: Hx Diabetes Mellitus Type 2, Hx Hypothyroidism Renal/ Medical History: Denies: Hx Peritoneal Dialysis Musculoskeltal Medical History: Denies Hx Arthritis Infectious Medical History: Reports: Hx C-Diff - currently Past Surgical History: Reports: Hx Section, Hx Cholecystectomy, Hx Gynecologic Surgery, Hx Hysterectomy, Hx Tonsillectomy - Immunizations Hx Diphtheria, Pertussis, Tetanus Vaccination: Yes History of Influenza Vaccine for 03/2017 - 07/2017 Season: No Review of Systems - Review of Systems Musculoskeletal: Leg swelling -: Yes All other systems reviewed and negative Physical Exam - Vital signs Vitals: Temp Pulse Resp BP Pulse Ox 97.9 F 91 14 110/84 96 02/22/18 17:28 02/22/18 17:28 02/22/18 17:28 02/22/18 17:28 02/22/18 17:28 - Respiratory Respiratory status: No respiratory distress Chest status: Nontender, Accessory muscle use Chest palpation: Normal - Cardiovascular Rhythm: Regular Heart sounds: Normal auscultation Course - Vital Signs Vital signs: Temp Pulse Resp BP Pulse Ox 97.9 F 91 14 110/84 96 02/22/18 17:28 02/22/18 17:28 02/22/18 17:28 02/22/18 17:28 02/22/18 17:28
--- NOTE | 2018-02-22 20:47 | RADIOLOGY REPORT (SQ) ---
EXAM DESCRIPTION: VENOUS BILATERAL LOWER COMPLETED DATE/TIME: 02/22/2018 8:31 pm REASON FOR STUDY: hx of ca bilateral swelling COMPARISON: 01/04/2018 TECHNIQUE: Dynamic and static brownlee scale and color images acquired of both lower extremity venous sy stems. Selected spectral images acquired with additional compression and augmentation maneuvers. Imag es stored on PACS. LIMITATIONS: None. FINDINGS: RIGHT LEG COMMON FEMORAL AND FEMORAL: Normal phasicity, compression and augmentation. No visualized echogenic m aterial on brownlee scale. No defects on color images. POPLITEAL: Normal compression and augmentation. No visualized echogenic material on brownlee scale. No de fects on color images. CALF VESSELS: Normal compression and augmentation. No visualized echogenic material on brownlee scale. No defects on color image. GSV AND SSV: Normal compression. No visualized echogenic material on brownlee scale. No defects on color images. ANY DEEP VENOUS INSUFFICIENCY: Not evaluated. ANY EVIDENCE OF POPLITEAL CYST: No. OTHER: No other significant finding. LEFT LEG COMMON FEMORAL AND FEMORAL: Normal phasicity, compression and augmentation. No visualized echogenic m aterial on brownlee scale. No defects on color images. POPLITEAL: Normal compression and augmentation. No visualized echogenic material on brownlee scale. No de fects on color images. CALF VESSELS: Normal compression and augmentation. No visualized echogenic material on brownlee scale. No defects on color images. GSV AND SSV: Normal compression. No visualized echogenic material on brownlee scale. No defects on color images. ANY DEEP VENOUS INSUFFICIENCY: Not evaluated. ANY EVIDENCE POPLITEAL CYST: No. OTHER: No other significant finding. IMPRESSION: NO EVIDENCE DVT OR SVT IN EITHER LEG. TECHNICAL DOCUMENTATION: JOB ID: [id number] [employer]- All Rights Reserved Reading location - IP/workstation name: [email or web address]
[2018-02-22] MEDS ORDERED: HYDROCODONE/ACETAMINOPHEN 5-325 MG (6 TAB/ER DISP) PO PRN (21:54)
--- NOTE | 2018-02-22 21:59 | ER Document Report ---
ED General - General Chief Complaint: Leg Swelling Stated Complaint: LEG SWELLING Time Seen by Provider: 02/22/18 18:03 Mode of Arrival: Ambulatory Information source: Patient Notes: This is a 42-year-old female with a history of hypertension, diabetes, hypothyroidism and endometrial cancer (hysterectomy, chemotherapy, radiation therapy) who presents to the emergency room with worsening neuropathy of the lower extremities. TRAVEL OUTSIDE OF THE [place].S[place] IN LAST 30 DAYS: No - HPI Onset: Last week Onset/Duration: Gradual Quality of pain: Dull Severity: Moderate Pain Level: 2 Associated symptoms: denies: Chest pain, Fever, Shortness of breath Exacerbated by: Movement Relieved by: Denies Similar symptoms previously: Yes Recently seen / treated by doctor: Yes - Related Data Allergies/Adverse Reactions: Penicillins Allergy (Verified 01/04/18 18:15) Past Medical History - General Information source: Patient - Social History Smoking Status: Current Every Day Smoker Cigarette use (# per day): Yes - 1 pack per day Chew tobacco use (# tins/day): No Frequency of alcohol use: None Drug Abuse: None Lives with: Family Family History: Reviewed & Not Pertinent Patient has suicidal ideation: No Patient has homicidal ideation: No - Past Medical History Cardiac Medical History: Denies: Hx Coronary Artery Disease, Hx Heart Attack, Hx Hypertension Pulmonary Medical History: Reports: Hx Asthma Denies: Hx Bronchitis, Hx COPD, Hx Pneumonia Neurological Medical History: Denies: Hx Cerebrovascular Accident, Hx Seizures Endocrine Medical History: Reports: Hx Diabetes Mellitus Type 2, Hx Hypothyroidism Renal/ Medical History: Denies: Hx Peritoneal Dialysis Musculoskeletal Medical History: Denies Hx Arthritis Infectious Medical History: Reports: Hx C-Diff - currently Past Surgical History: Reports: Hx Section, Hx Cholecystectomy, Hx Gynecologic Surgery, Hx Hysterectomy, Hx Tonsillectomy - Immunizations Hx Diphtheria, Pertussis, Tetanus Vaccination: Yes Review of Systems - Review of Systems Constitutional: denies: Chills, Fever EENT: No symptoms reported Cardiovascular: No symptoms reported Respiratory: No symptoms reported Gastrointestinal: No symptoms reported Genitourinary: No symptoms reported Female Genitourinary: No symptoms reported Musculoskeletal: See HPI Skin: No symptoms reported Hematologic/Lymphatic: No symptoms reported Neurological/Psychological: See HPI Physical Exam - Vital signs Vitals: Temp Pulse Resp BP Pulse Ox 97.9 F 91 14 110/84 96 02/22/18 17:28 02/22/18 17:28 02/22/18 17:28 02/22/18 17:28 02/22/18 17:28 Notes: Physical exam: GENERAL: 42-year-old female, alert and oriented 3, no acute distress HEAD: Atraumatic, normocephalic. EYES: Pupils equal round and reactive to light, extraocular movements intact, sclera anicteric, conjunctiva are normal. ENT: TMs normal, nares patent, oropharynx clear without exudates. Moist mucous membranes. NECK: Normal range of motion, supple without obvious mass or JVD. LUNGS: Breath sounds clear to auscultation bilaterally and equal. No wheezes rales or rhonchi. HEART: Regular rate and rhythm without murmurs, rubs or gallops. ABDOMEN: Soft, normoactive bowel sounds. No tenderness to palpation. No guarding, no rebound. No masses appreciated. EXTREMITIES: Normal range of motion, no pitting or edema. No clubbing or cyanosis. NEUROLOGICAL: Cranial nerves II through XII grossly intact. Normal speech, moving all extremities. PSYCH: Normal mood, normal affect. SKIN: Warm, Dry, normal turgor, no rashes or lesions noted. Course - Vital Signs Vital signs: Temp Pulse Resp BP Pulse Ox 97.9 F 91 14 110/84 96 02/22/18 17:28 02/22/18 17:28 02/22/18 17:28 02/22/18 17:28 02/22/18 17:28 - Diagnostic Test Radiology reviewed: Image reviewed, Reports reviewed - This Doppler shows no DVT Discharge - Discharge Clinical Impression: Peripheral neuropathy Condition: Stable Disposition: HOME, SELF-CARE Additional Instructions: As we discussed, the lower extremity Dopplers showed no evidence of blood clots. I want you to continue with the gabapentin, Tylenol and ibuprofen. Take the oxycodone for pain unrelieved by the above. The pain medicine you're taking prescribed as a narcotic. There are several important things you should know about this medicine: 1. Taking narcotics for too long can lead to physical and mental dependence. Take this medicine only if really needed and in the lowest quantity to achieve pain relief. 2. Do not drink alcohol while on this medicine. Alcohol interacts with narcotics and the combination can be dangerous. 3. Do not drive or operate machinery while on this medicine. 4. Narcotics do cause constipation, so drink plenty of fluids and daily stool softeners. I want you to follow-up with the primary care doctor. Below is the #3 primary care doctors affiliated with this hospital. Dr. Flako Johnson [address], [place] [phone] Dr Thakur Address: [address] [facility] , [place] [address] Dr David Address: [address] [place] [address] , [place] [address] Prescriptions: Oxycodone HCl 5 mg PO Q6HP PRN #25 tablet PRN Reason: Referrals: SUNDAR FREDERICK MD [ACTIVE STAFF] - Follow up as needed (This is the number the [facility])
[2018-02-22 22:19] VITALS: BP 120/71
== END 2018-02-22 22:20 | disposition home or self-care (01) ==
LOC: ER 17:06
DX: E11.42 Type 2 diabetes mellitus with diabetic polyneuropathy (principal); F17.210 Nicotine dependence, cigarettes, uncomplicated; I10 Essential (primary) hypertension; E03.9 Hypothyroidism, unspecified; Z88.0 Allergy status to penicillin; Z90.710 Acquired absence of both cervix and uterus; Z90.49 Acquired absence of other specified parts of digestive tract
CPT/HCPCS: 93970; 99283

== ENCOUNTER 2019-06-16 13:49 | Emergency (ER) | payer BC ==
[2019-06-16 14:16] LABS: ABSOLUTE EOSINOPHILS # (AUTO) 0.2 10^3/uL (0.0-0.6); ABSOLUTE LYMPHOCYTES (AUTO) 1.4 10^3/uL (0.5-4.7); ABSOLUTE MONOCYTES (AUTO) 0.5 10^3/uL (0.1-1.4); ABSOLUTE NEUT (AUTO) 5.8 10^3/uL (1.7-8.2); BASOPHILS % (AUTO) 0.4 % (0-2); EOSINOPHILS % (AUTO) 2.9 % (0-6); HEMATOCRIT 45.3 % (36.0-47.0); HEMOGLOBIN 15.1 g/dL (12.0-15.5); MEAN CORPUSCULAR HEMOGLOBIN 27.2 pg (27.0-33.4); MEAN CORPUSCULAR HGB CONC 33.2 g/dL (32.0-36.0); MEAN CORPUSCULAR VOLUME 82 fl (80-97); MONOCYTES % (AUTO) 5.9 % (3-13); PLATELET COUNT 187 10^3/uL (150-450); RED BLOOD COUNT 5.54 10^6/uL (3.72-5.28); RED CELL DISTRIBUTION WIDTH 18.5 % (11.5-14.0); SEGMENTED NEUTROPHILS % (AUTO) 72.8 % (42-78); TOTAL CELLS COUNTED % (AUTO) 100 %
[2019-06-16 14:45] LABS: ALBUMIN 4.5 g/dL (3.5-5.0); ALKALINE PHOSPHATASE 74 U/L (38-126); ANION GAP 13 (5-19); ASPARTATE AMINO TRANSFERASE 52 U/L (14-36); BILIRUBIN,DIRECT 0.4 mg/dL (0.0-0.4); BILIRUBIN,TOTAL 0.4 mg/dL (0.2-1.3); BLOOD UREA NITROGEN 15 mg/dL (7-20); CALCIUM 9.5 mg/dL (8.4-10.2); CARBON DIOXIDE 24 mmol/L (22-30); CHLORIDE 103 mmol/L (98-107); CREATINE KINASE 123 U/L (30-135); GLUCOSE 115 mg/dL (75-110); POTASSIUM 4.4 mmol/L (3.6-5.0); TOTAL PROTEIN 7.6 g/dL (6.3-8.2)
[2019-06-16 14:55] LABS: CREATINE KINASE MB 0.76 ng/mL (<4.55)
[2019-06-16 14:56] LABS: TROPONIN I < 0.012 ng/mL
[2019-06-16 15:22] LABS: APPEARANCE,URINE SLIGHTLY-CLOUDY; BILIRUBIN,URINE NEGATIVE (NEGATIVE); COLOR,URINE YELLOW; GLUCOSE, URINE >=500 mg/dL (NEGATIVE); KETONES,URINE TRACE mg/dL (NEGATIVE); LEUKOCYTE ESTERASE,URINE NEGATIVE (NEGATIVE); NITRITE,URINE NEGATIVE (NEGATIVE); PROTEIN,URINE NEGATIVE (NEGATIVE); URINE SPECIFIC GRAVITY 1.039; UROBILINOGEN,URINE NEGATIVE mg/dL (<2.0)
--- NOTE | 2019-06-16 15:48 | EKG REPORT ---
SEVERITY:- BORDERLINE ECG - SINUS RHYTHM PROBABLE LEFT ATRIAL ABNORMALITY : Confirmed by: Chapis Martinez MD 16-Jun-2019 15:47:53
--- NOTE | 2019-06-16 17:11 | ER Document Report ---
ED General - General Chief Complaint: Syncope Stated Complaint: SYNCOPE Time Seen by Provider: 06/16/19 16:32 Notes: 44-year-old female presents with episode of syncope. Patient was coughing felt dizzy and passed out. Patient was with her son at medical clinic and son was able to catch patient. Patient also vomited one time in the ambulance. Patient was given Zofran in the ambulance. Patient states she is feeling better and is unhappy with being in the ER. Patient denies any chest pain, dyspnea, abdominal pain, nausea/vomiting. Patient states she does have a history of asthma. Patient was placed on O2 due to dropping into the 91 to 92% while asleep in the ER. TRAVEL OUTSIDE OF THE [place] IN LAST 30 DAYS: No - Related Data Allergies/Adverse Reactions: Penicillins Allergy (Verified 01/04/18 18:15) Home Medications: pt unable to recall at this time Past Medical History - Social History Smoking Status: Current Every Day Smoker Family History: Reviewed & Not Pertinent Patient has suicidal ideation: No Patient has homicidal ideation: No - Past Medical History Cardiac Medical History: Denies: Hx Coronary Artery Disease, Hx Heart Attack, Hx Hypertension Pulmonary Medical History: Reports: Hx Asthma Denies: Hx Bronchitis, Hx COPD, Hx Pneumonia Neurological Medical History: Denies: Hx Cerebrovascular Accident, Hx Seizures Endocrine Medical History: Reports: Hx Diabetes Mellitus Type 2, Hx Hypothyroidism Renal/ Medical History: Denies: Hx Peritoneal Dialysis Musculoskeletal Medical History: Denies Hx Arthritis Infectious Medical History: Reports: Hx C-Diff - currently Past Surgical History: Reports: Hx Section, Hx Cholecystectomy, Hx Gynecologic Surgery, Hx Hysterectomy, Hx Tonsillectomy - Immunizations Hx Diphtheria, Pertussis, Tetanus Vaccination: Yes Review of Systems - Review of Systems Notes: Constitutional: Negative for fever. HENT: Negative for sore throat. Eyes: Negative for visual changes. Cardiovascular: Negative for chest pain. Respiratory: Negative for shortness of breath. Gastrointestinal: Negative for abdominal pain, vomiting or diarrhea. Genitourinary: Negative for dysuria. Musculoskeletal: Negative for back pain. Skin: Negative for rash. Neurological: Positive for syncope and dizziness. Negative for headaches, weakness or numbness. 10 point ROS negative except as marked above and in HPI. Physical Exam - Vital signs Vitals: Resp Pulse Ox 15 97 06/16/19 14:02 06/16/19 14:02 - Notes Notes: GENERAL: Well-appearing, well-nourished and in no acute distress. HEAD: Atraumatic, normocephalic. EYES: Pupils equal round and reactive to light, extraocular movements intact, sclera anicteric, conjunctiva are normal. ENT: TMs normal, nares patent, oropharynx clear without exudates. Moist mucous membranes. NECK: Normal range of motion, supple without lymphadenopathy or JVD. LUNGS: Mild wheezing in right lower lobe. But otherwise breath sounds clear to auscultation bilaterally and equal. HEART: Regular rate and rhythm without murmurs, rubs or gallops. EXTREMITIES: Normal range of motion, no pitting or edema. No clubbing or cyanosis. NEUROLOGICAL: Cranial nerves II through XII grossly intact. Normal speech, normal gait. PERRLA. EOM intact. Job Counselor strength equal bilaterally. No tongue deviation. No facial droop. Sensory intact bilaterally. Upper extremity strength equal bilaterally. Lower extremity strength equal bilaterally. PSYCH: Normal mood, normal affect. SKIN: Warm, Dry, normal turgor, no rashes or lesions noted. Course - Re-evaluation Re-evalutation: 06/16/19 44-year-old female presents with syncopal episode after having a coughing fit. Patient states she had a headache from coughing. Work-up was initiated. Patient states she is feeling better and would like to leave. Explained to patient that we would like to get a CT Angio of the chest and CT head and that if she would not like to have this done she could sign out AGAINST MEDICAL ADVICE. Patient declines at this time. EKG is normal sinus rhythm with a rate of 86. Troponins negative. Lab work is otherwise unremarkable. CT head was ordered due to headache. CT angio chest was ordered due to syncope and her O2 dropping to low 90s while asleep in the ER. Patient states this is normal for her when she falls asleep. 06/16/19 18:31 CT head was negative. CT angios chest was negative for PE. Per [place] syncope rule patient is in low risk group for serious outcome as she has no CHF history, hematocrit is not less than 30%, no abnormal EKG, no shortness of breath history, no SBP less than 90 at triage. Patient given close follow-up with PCP. Syncope was most likely secondary to vasovagal response after having a coughing fit. Patient given strict return precautions. Patient voices understanding and agrees with plan of care. - Vital Signs Vital signs: Temp Pulse Resp BP Pulse Ox 98.7 F 15 115/77 98 06/16/19 14:14 06/16/19 18:00 06/16/19 17:01 06/16/19 18:00 - Laboratory Result Diagrams: 06/16/19 14:11 06/16/19 14:11 Laboratory results interpreted by me: 06/16/19 06/16/19 06/16/19 14:11 14:11 14:51 RBC 5.54 H RDW 18.5 H Glucose 115 H AST 52 H Urine Glucose (UA) >=500 H Urine Ketones TRACE H Discharge - Discharge Clinical Impression: Syncope Qualifiers: Syncope type: vasovagal syncope Qualified Code(s): R55 - Syncope and collapse Condition: Stable Disposition: HOME, SELF-CARE Instructions: Syncopal Episode ([facility]) Additional Instructions: Your CT head was normal. Your CT of your chest did not show any blood clots. Your EKG was reassuring. Your lab work was reassuring. Please follow-up with your primary care doctor or 1 of the clinics listed in 1 to 3 days. Please follow-up with distribution warehouse manager listed. Return to ER for any worsening symptoms, including any more episodes of syncope, chest pain, shortness of breath, nausea/vomiting, headache, fever, neck pain, dizziness, or any other symptoms that are concerning to you. Referrals: DARREN ANGULO MD [COMMUNITY BASED STAFF] - Follow up in 3-5 days [facility] [Provider Group] - Follow up in 3-5 days FERNIE PEREIRA MD [ACTIVE STAFF] - Follow up in 3-5 days
--- NOTE | 2019-06-16 18:07 | RADIOLOGY REPORT (SQ) ---
EXAM DESCRIPTION: CT HEAD WITHOUT COMPLETED DATE/TIME: 06/16/2019 5:59 pm REASON FOR STUDY: syncope, possible head injury COMPARISON: None. TECHNIQUE: Axial images acquired through the brain without intravenous contrast. Images reviewed wi th bone, brain and subdural windows. Additional sagittal and coronal reconstructions were generated. Images stored on PACS. All CT scanners at this facility use dose modulation, iterative reconstruction, and/or weight based d osing when appropriate to reduce radiation dose to as low as reasonably achievable (ALARA). [facility]: Dose Right [facility]: CareDose [facility]: Dose Right [facility]: Teradose 4D [facility]: [employer] RADIATION DOSE: CT Rad equipment meets quality standard of care and radiation dose reduction techniq ues were employed. CTDIvol: 53.2 mGy. DLP: 1124 mGy-cm. mGy. LIMITATIONS: None. FINDINGS: VENTRICLES: Normal size and contour. CEREBRUM: No masses. No hemorrhage. No midline shift. No evidence for acute infarction. Normal gra y/white matter differentiation. No areas of low density in the white matter. CEREBELLUM: No masses. No hemorrhage. No alteration of density. No evidence for acute infarction. EXTRAAXIAL SPACES: No fluid collections. No masses. ORBITS AND GLOBE: No intra- or extraconal masses. Normal contour of globe without masses. CALVARIUM: No fracture. PARANASAL SINUSES: No fluid or mucosal thickening. SOFT TISSUES: No mass or hematoma. OTHER: No other significant finding. IMPRESSION: NORMAL BRAIN CT WITHOUT CONTRAST. EVIDENCE OF ACUTE STROKE: NO. COMMENT: Quality ID # 436: Final reports with documentation of one or more dose reduction techniques (e.g., Automated exposure control, adjustment of the mA and/or kV according to patient size, use of iterative reconstruction technique) TECHNICAL DOCUMENTATION: JOB ID: [id number] [employer] All Rights Reserved Reading location - IP/workstation name: [email or web address]
--- NOTE | 2019-06-16 18:10 | RADIOLOGY REPORT (SQ) ---
EXAM DESCRIPTION: CTA CHEST COMPLETED DATE/TIME: 06/16/2019 5:59 pm REASON FOR STUDY: syncope, hypoxia , rule out PE COMPARISON: None. TECHNIQUE: CT scan of the chest performed using helical scanning technique with dynamic intravenous contrast injection. Images reviewed with lung, soft tissue and bone windows. Reconstructed coronal and sagittal MPR images reviewed. Additional 3 dimensional post-processing performed to develop Maximal Intensity Projection images (VT P). All images stored on PACS. All CT scanners at this facility use dose modulation, iterative reconstruction, and/or weight based d osing when appropriate to reduce radiation dose to as low as reasonably achievable (ALARA). [facility]: Dose Right [facility]: CareDose [facility]: Dose Right [facility]: Teradose 4D [facility]: [employer] CONTRAST TYPE AND DOSE: contrast/concentration: Isovue 350.00 mg/ml; Total Contrast Delivered: 69.0 ml; Total Saline Delivered: 71.3 ml Contrast bolus adequate for pulmonary arteries and aorta. RENAL FUNCTION: BUN 15 creatinine 0.76. RADIATION DOSE: CT Rad equipment meets quality standard of care and radiation dose reduction techniq ues were employed. CTDIvol: 19.8 - 29.8 mGy. DLP: 1126 mGy-cm. . LIMITATIONS: None. FINDINGS: LUNGS AND PLEURA: No masses, infiltrates, or pneumothorax. No pleural effusions or pleura l calcifications. AORTA AND GREAT VESSELS: No aneurysm. No dissection. HEART: No pericardial effusion. No significant coronary artery calcifications. PULMONARY ARTERIES: No emboli visualized in the main pulmonary arteries or the segmental branches. HILAR AND MEDIASTINAL STRUCTURES: No identified masses or abnormal nodes. HARDWARE: None in the chest. UPPER ABDOMEN: No significant findings. Limited exam. THYROID AND OTHER SOFT TISSUES: No masses. No adenopathy. BONES: No acute or significant finding. 3D MIPS: Confirm above findings. OTHER: No other significant finding. IMPRESSION: NORMAL CTA OF THE CHEST. NO PULMONARY EMBOLI. COMMENT: Quality ID # [id number]: Final reports with documentation of one or more dose reduction techniques (e.g., Automated exposure control, adjustment of the mA and/or kV according to patient size, use of iterative reconstruction technique) TECHNICAL DOCUMENTATION: JOB ID: [id number] [employer]- All Rights Reserved Reading location - IP/workstation name: [email or web address]
[2019-06-16 18:47] VITALS: BP 110/62
== END 2019-06-16 18:47 | disposition home or self-care (01) ==
LOC: ER 13:49
DX: R55 Syncope and collapse (principal); R05 Cough; R42 Dizziness and giddiness; R51 Headache; E11.9 Type 2 diabetes mellitus without complications; J45.909 Unspecified asthma, uncomplicated; F17.200 Nicotine dependence, unspecified, uncomplicated; Z88.0 Allergy status to penicillin
CPT/HCPCS: 36415; 70450; 71275; 80053; 81001; 82550; 82553; 84484; 85025; 93005; 93010; 99284

== ENCOUNTER 2020-01-10 14:37 | Emergency (ER) | payer BC ==
--- NOTE | 2020-01-10 14:50 | ER Document Report ---
ED Medical Screen (RME) - General Chief Complaint: Abscess Stated Complaint: ABSCESS/LEFT JAWLINE Time Seen by Provider: 01/10/20 14:43 Mode of Arrival: Ambulatory Information source: Patient Notes: Patient states she went to her primary care yesterday they did an I&D to an abscess of the left side of the chin and the area got much more swollen today. She states she called the doctor and they told her that she needed to come to the emergency room to get IV antibiotics. She does have no compromise to her airway at this time. She is able to answer all questions. She does have swelling to the center of her neck and up the side of her face. I have discussed this with Dr. Mcdonnell. He recommended lab work CBC chemistry and CT of the soft tissue neck with contrast. This has been ordered. I have greeted and performed a rapid initial assessment of this patient. A comprehensive ED assessment and evaluation of the patient, analysis of test results and completion of medical decision making process will be conducted by an additional ED providers. TRAVEL OUTSIDE OF THE [place] IN LAST 30 DAYS: No - Related Data Allergies/Adverse Reactions: Penicillins Allergy (Verified 01/10/20 14:44) Past Medical History - Past Medical History Cardiac Medical History: Denies: Hx Coronary Artery Disease, Hx Heart Attack, Hx Hypertension Pulmonary Medical History: Reports: Hx Asthma Denies: Hx Bronchitis, Hx COPD, Hx Pneumonia Neurological Medical History: Denies: Hx Cerebrovascular Accident, Hx Seizures Endocrine Medical History: Reports: Hx Diabetes Mellitus Type 2, Hx Hy pothyroidism Renal/ Medical History: Denies: Hx Peritoneal Dialysis Musculoskeltal Medical History: Denies Hx Arthritis Infectious Medical History: Reports: Hx C-Diff - currently Past Surgical History: Reports: Hx Section, Hx Cholecystectomy, Hx Gynecologic Surgery, Hx Hysterectomy, Hx Tonsillectomy - Immunizations Hx Diphtheria, Pertussis, Tetanus Vaccination: Yes
[2020-01-10 15:27] LABS: ABSOLUTE EOSINOPHILS # (AUTO) 0.1 10^3/uL (0.0-0.6); ABSOLUTE LYMPHOCYTES (AUTO) 0.7 10^3/uL (0.5-4.7); ABSOLUTE MONOCYTES (AUTO) 0.6 10^3/uL (0.1-1.4); ABSOLUTE NEUT (AUTO) 4.4 10^3/uL (1.7-8.2); BASOPHILS % (AUTO) 0.6 % (0-2); EOSINOPHILS % (AUTO) 1.5 % (0-6); HEMATOCRIT 41.2 % (36.0-47.0); HEMOGLOBIN 13.5 g/dL (12.0-15.5); LYMPHOCYTES % (AUTO) 12.4 % (13-45); MEAN CORPUSCULAR HEMOGLOBIN 26.5 pg (27.0-33.4); MEAN CORPUSCULAR HGB CONC 32.7 g/dL (32.0-36.0); MEAN CORPUSCULAR VOLUME 81 fl (80-97); PLATELET COUNT 188 10^3/uL (150-450); RED BLOOD COUNT 5.09 10^6/uL (3.72-5.28); SEGMENTED NEUTROPHILS % (AUTO) 75.5 % (42-78); TOTAL CELLS COUNTED % (AUTO) 100 %; WHITE BLOOD COUNT 5.9 10^3/uL (4.0-10.5)
[2020-01-10] MEDS ORDERED: VANCOMYCIN HCL INJ 1000 MG VIAL IV ONE (15:34)
[2020-01-10] MEDS ORDERED: CLINDAMYCIN 900 MG/D5W RTU 900 MG/50 ML RTUPB IV ONE (15:34)
[2020-01-10 15:44] LABS: ALBUMIN 4.1 g/dL (3.5-5.0); ALKALINE PHOSPHATASE 58 U/L (38-126); ANION GAP 9 (5-19); ASPARTATE AMINO TRANSFERASE 19 U/L (14-36); BILIRUBIN,TOTAL 0.3 mg/dL (0.2-1.3); BLOOD UREA NITROGEN 12 mg/dL (7-20); CALCIUM 9.5 mg/dL (8.4-10.2); CARBON DIOXIDE 26 mmol/L (22-30); CHLORIDE 101 mmol/L (98-107); GLUCOSE 163 mg/dL (75-110); POTASSIUM 4.9 mmol/L (3.6-5.0); TOTAL PROTEIN 7.1 g/dL (6.3-8.2)
--- NOTE | 2020-01-10 16:29 | RADIOLOGY REPORT (SQ) ---
EXAM DESCRIPTION: CT SOFT TISSUE NECK WITH IMAGES COMPLETED DATE/TIME: 01/10/2020 4:16 pm REASON FOR STUDY: Swelling redness left side of face and neck COMPARISON: None. TECHNIQUE: Post IV contrasted scanning from skull base through lung apices with review of bone, soft tissue and lung windows. Reconstructed coronal and sagittal MPR images reviewed. All images stored on PACS. All CT scanners at this facility use dose modulation, iterative reconstruction, and/or weight based d osing when appropriate to reduce radiation dose to as low as reasonably achievable (ALARA). [facility]: Dose Right [facility]: CareDose [facility]: Dose Right [facility]: Teradose 4D [facility]: [employer] CONTRAST TYPE AND DOSE: contrast/concentration: Isovue 350.00 mmol/ml; Total Contrast Delivered: 73. 0 ml; Total Saline Delivered: 54.4 ml RENAL FUNCTION: BUN 12 creatinine 0.71. RADIATION DOSE: CT Rad equipment meets quality standard of care and radiation dose reduction techniq ues were employed. CTDIvol: 19.3 mGy. DLP: 678 mGy-cm. . LIMITATIONS: None. FINDINGS: SOFT TISSUES: There is stranding in the superficial subcutaneous soft tissues of the ante rior left side of the neck below the mandible and extending to approximately the level of the hyoid b one. There is a focal collection of gas which extends to the skin surface (axial series 3, image 62) . This measures approximately 1.5 cm in length. No associated fluid collection. SKULL BASE: Intact. MAJOR SALIVARY GLANDS: No solid or cystic masses. No inflammatory changes. LYMPHADENOPATHY: No adenopathy. MUCOSAL MASSES OR ASYMMETRY: No mucosal masses or asymmetry. LARYNX/CORDS: No abnormal findings. VASCULAR STRUCTURES: The major vessels are patent. LUNG APICES: Clear. BONES: Intact. THYROID: Normal size. No masses. PARANASAL SINUSES: Clear. OTHER: No other significant finding. IMPRESSION: INFLAMMATORY/INFECTIOUS CHANGES IN THE SUBCUTANEOUS FATTY TISSUES OF THE LEFT SIDE OF TH E NECK. FOCAL COLLECTION OF GAS EXTENDING TO THE SKIN SURFACE WITHOUT ASSOCIATED FLUID COLLECTION. THIS COULD REPRESENT PENETRATING INJURY OR COULD BE DUE TO INFECTIOUS ETIOLOGY. FORMED ABSCESS NOT P RESENT. TECHNICAL DOCUMENTATION: JOB ID: [id number] Quality ID # [id number]: Final reports with documentation of one or more dose reduction techniques (e.g., Au tomated exposure control, adjustment of the mA and/or kV according to patient size, use of iterative reconstruction technique) 2010 [employer]- All Rights Reserved Reading location - IP/workstation name: [email or web address]
--- NOTE | 2020-01-10 17:15 | ER Document Report ---
ED General - General Chief Complaint: Abscess Stated Complaint: ABSCESS/LEFT JAWLINE Time Seen by Provider: 01/10/20 14:43 Mode of Arrival: Ambulatory Information source: Patient TRAVEL OUTSIDE OF THE [place] IN LAST 30 DAYS: No - HPI Notes: Patient complains of left sided anterior neck pain. She states that she has received 1 round of chemotherapy for a recent diagnosis of endometrial cancer. She states over the weekend she noticed a small "sore" that she scratched on her left submandibular area. This then grew into an abscess and she went to see ear nose and throat yesterday. She states that it was drained in the office. This morning she felt that the redness was worse and spreading so she called the office. The office instructed the patient to come to the emergency department. She states the pain is mild to moderate. Is constant. It is a dull burning sensation. She denies any trouble speaking or swallowing. No trouble breathing. No known fevers. The pain has no significant radiation. - Related Data Allergies/Adverse Reactions: Penicillins Allergy (Verified 01/10/20 14:44) Past Medical History - General Information source: Patient - Social History Smoking Status: Current Every Day Smoker Chew tobacco use (# tins/day): No Frequency of alcohol use: None Drug Abuse: None Family History: Reviewed & Not Pertinent Patient has homicidal ideation: No - Past Medical History Cardiac Medical History: Denies: Hx Coronary Artery Disease, Hx Heart Attack, Hx Hypertension Pulmonary Medical History: Reports: Hx Asthma Denies: Hx Bronchitis, Hx COPD, Hx Pneumonia Neurological Medical History: Denies: Hx Cerebrovascular Accident, Hx Seizures Endocrine Medical History: Reports: Hx Diabetes Mellitus Type 2, Hx Hypothyroidism Renal/ Medical History: Denies: Hx Peritoneal Dialysis Musculoskeletal Medical History: Denies Hx Arthritis Infectious Medical History: Reports: Hx C-Diff - currently Past Surgical History: Reports: Hx Section, Hx Cholecystectomy, Hx Gynecologic Surgery, Hx Hysterectomy, Hx Tonsillectomy - Immunizations Hx Diphtheria, Pertussis, Tetanus Vaccination: Yes Review of Systems - Review of Systems Constitutional: denies: Chills, Fever Cardiovascular: denies: Chest pain, Palpitations Respiratory: denies: Cough, Short of breath -: Yes All other systems reviewed and negative Physical Exam - Vital signs Vitals: Temp Pulse Resp BP 98.1 F 104 H 14 139/82 H 01/10/20 14:43 08/11/20 14:43 01/10/20 14:43 01/10/20 14:43 Interpretation: Tachycardic - Patient was apparently tachycardic at triage however when I take her pulse at 5:12 PM it is 92. - General General appearance: Appears well, Alert - HEENT Head: Normocephalic, Atraumatic Eyes: Normal Pupils: PERRL Neck: Other - Patient's anterior neck has erythema induration and tenderness mainly about the left anterior and lateral side and just into the submandibular area. She has evidence of a recently drained abscess with packing in place. No significant discharge is active. There is some mild sero-sanguinous/pus drainage if the area is milked. There is no crepitus. - Respiratory Respiratory status: No respiratory distress Chest status: Nontender Breath sounds: Normal Chest palpation: Normal - Cardiovascular Rhythm: Regular Heart sounds: Normal auscultation Murmur: No - Abdominal Inspection: Normal Distension: No distension Bowel sounds: Normal Tenderness: Nontender Organomegaly: No organomegaly - Back Back: Normal, Nontender - Extremities General upper extremity: Normal inspection, Nontender, Normal color, Normal ROM, Normal temperature General lower extremity: Normal inspection, Nontender, Normal color, Normal ROM, Normal temperature, Normal weight bearing. No: Lizeth's sign - Neurological Neuro grossly intact: Yes Cognition: Normal Orientation: AAOx4 Alysa Coma Scale Eye Opening: Spontaneous [place] Coma Scale Verbal: Oriented [place] Coma Scale Motor: Obeys Commands [place] Coma Scale Total: 15 Speech: Normal Motor strength normal: LUE, RUE, LLE, RLE Sensory: Normal - Psychological Associated symptoms: Normal affect, Normal mood - Skin Skin Temperature: Warm Skin Moisture: Dry Skin Color: Normal - Except as noted above under neck exam Course - Re-evaluation Re-evalutation: 01/10/20 17:13 Patient presents with neck pain erythema and induration after having the abscess drained yesterday. CT shows no evidence of deep structure involvement. I discussed the case with the ear nose and throat surgeon, Dr. Andujar. He states that he felt the patient was capable of being discharged since patient has a follow-up appointment tomorrow with his partner here in [place]. Patient states she knows she has the appointment and she is going to keep it. Patient has no evidence of any type of emergent process that would require further treatment or admission. Her vital signs are stable and she has no fever. There is no crepitus. CT shows no evidence of deep structure involvement. She has no elevated white blood cell count. Over the approximate 3 hours she has been in the emergency department there is no significant spread of the erythema or induration. I did remove the packing that was placed yesterday and placed new packing today. I also gave the patient IV clindamycin and vancomycin and I will give the patient a prescription for clindamycin for home. - Vital Signs Vital signs: Temp Pulse Resp BP Pulse Ox 98.1 F 104 H 14 139/82 H 01/10/20 14:43 01/10/20 14:43 01/10/20 14:43 01/10/20 14:43 - Laboratory Result Diagrams: 01/10/20 15:02 01/10/20 15:02 Laboratory results interpreted by me: 01/10/20 01/10/20 15:02 15:02 [facility] 26.5 L RDW 17.0 H Lymph % (Auto) 12.4 L Sodium 135.9 L Glucose 163 H - Diagnostic Test Radiology reviewed: Image reviewed, Reports reviewed Discharge - Discharge Clinical Impression: Neck abscess Condition: Stable Disposition: HOME, SELF-CARE Instructions: Abscess ([facility]), Post Incision and Drainage, Trimethoprim-Sulfa ([facility]) Additional Instructions: Please follow up with ENT as scheduled tomorrow. Prescriptions: Clindamycin HCl 300 mg PO Q6 7 Days #28 capsule Referrals: KELBY ANDUJAR MD [NO LOCAL MD] - Follow up tomorrow
[2020-01-10 18:45] VITALS: BP 108/64
== END 2020-01-10 18:46 | disposition home or self-care (01) ==
LOC: ER 14:37
DX: L02.11 Cutaneous abscess of neck (principal); C54.1 Malignant neoplasm of endometrium; F17.200 Nicotine dependence, unspecified, uncomplicated
CPT/HCPCS: 99285; 96375; 96365; 36415; 87040; 85025; 87077; 80053; 87150 ×26; 70491; J3490; J3370